=== PATIENT | male | born 1950 | race Asian ===

== ENCOUNTER 2019-11-07 11:25 | Day surgery (SDC) | payer MEDICARE, BC ==
[~2019-11-07] VITALS: Ht 180.3 cm; Wt 72.3 kg
[2019-11-07] MEDS ORDERED: VALA500T41 PO (11:49)
[2019-11-07] MEDS ORDERED: ATOR10TA87 PO (11:50)
[2019-11-07] MEDS ORDERED: VENE100T PO (12:01)
[2019-11-07] MEDS ORDERED: IBRU140C PO (12:02)
[2019-11-07 12:17] VITALS: BP 138/76
[2019-11-07] MEDS ORDERED: LIDOcaine 1%/PF 5ML 10 MG/ML VIAL ONE (13:17)
[2019-11-07 13:50] VITALS: BP 143/81
[2019-11-07 14:00] VITALS: BP 140/77
[2019-11-07 14:15] VITALS: BP 124/71
[2019-11-07 14:30] VITALS: BP 120/65
== END 2019-11-07 15:00 | disposition home or self-care (01) ==
LOC: SSTAY O 11:25
PROVIDERS: ATTEND Radiology Diagnostic Radiology
DX: Z45.2 Encounter for adjustment and management of vascular access device (principal); C91.10 Chronic lymphocytic leukemia of B-cell type not having achieved remission; Z79.899 Other long term (current) drug therapy
CPT/HCPCS: 36590